=== PATIENT | male | born 1945 | race Caucasian/White ===

== ENCOUNTER 2017-06-03 16:05 | Inpatient (IN) | payer MEDICARE, MEDICAID ==
--- NOTE | 2017-06-03 16:41 | ED Physician Chart ---
ED Chief Complaint/HPI - Patient Information Date Seen:: 06/03/17 Time Seen:: 16:30 Chief Complaint:: shortness of breath History of Present Illness:: Patient complains of shortness of breath for 2 month. He is also being sent here for recent increase in tremors and increased unsteady gait. Allergies:: Allergies Allergy/AdvReac Type Severity Reaction Status Date / Time No Known Allergies Allergy Verified 06/03/17 16:21 Vitals:: Vital Signs - 8 hr 06/03/17 16:21 Temp 98.2 F HR 97 RR 16 BP 174/84 O2 Sat % 94 Historian:: Patient Review:: Transfer documents Reviewed ED Review of Systems - Review of Systems General/Constitutional: No fever, No chills Skin: No skin lesions Head: No headache Eyes: No loss of vision ENT: No earache Neck: No neck pain Cardio Vascular: No chest pain, No palpitations Pulmonary: SOB GI: No nausea, No vomiting, No diarrhea G/U: No dysuria Endocrine: No polyuria, No polydipsia Psychiatric: Prior psych history Hematopoietic: No bruising Allergic/Immuno: No urticaria Neurological: No syncope ED Past Medical History - Past Medical History Past Medical History: Dyslipidemia, PUD/GERD, Seizures, Other (schizophrenia; Parkinson's disease; atherosclerotic heart disease; diverticulitis; hyperlipidemia; glaucoma; cataract; pulmonary valve stenosis; intellectual disability) Family History: None Social History: Care Facility, Other (former smoker) Family Medical History - Family Member Sister Ethnicity: Non- Living Status: Still Living Hx Family Diabetes: Yes (?) ED Physical Exam - Physical Examination General/Constitutional: Well-developed, well-nourished, Alert Head: Atraumatic Eyes: Lids, conjuctiva normal, PERRL Skin: Nl inspection, No rash ENMT: External ears, nose nl Other ENMT comments:: Edentulous Neck: No nuchal rigidity Respiratory: Nl effort/Exclusion, Clear to Auscultation, No Wheeze/Rhonchi/Rales Cardio Vascular: RRR, No murmur, gallop, rubs GI: No tenderness/rebounding/guarding, No organomegaly, No hernia : No CVA tenderness Extremities: Normal digits & nails Neuro/Psych: No focal deficits Misc: Normal back ED Labs/Radiology/EKG Results - Lab Results Results: Laboratory Results - last 24 hr 06/03/17 06/03/17 16:26 16:26 WBC 7.2 RBC 3.87 Hgb 12.1 Hct 34.4 L MCV 88.8 MCH 31.3 H MCHC Differential 35.3 RDW 12.3 Plt Count 276 MPV 6.9 Neutrophils % 69.9 Lymphocytes % 18.9 L Monocytes % 7.8 Eosinophils % 2.4 Basophils % 1.0 Sodium 127 L Potassium 3.8 Chloride 92 L Carbon Dioxide 27.2 Anion Gap 11.6 BUN 14 Creatinine 0.7 Est GFR ( Amer) > 60.0 Est GFR (Non-Af Amer) > 60.0 BUN/Creatinine Ratio 20.0 Glucose 118 H Calcium 8.8 Magnesium 2.2 - Radiology Results Results: Chest x-ray: No infiltrate; elevation of right hemidiaphragm noted - EKG Interpretations Rate & Rhythm: normal sinus rhythm with a rate of 95 [place]: normal ED Septic Shock - . Is Septic Shock (SBP<90, OR Lactate>4 mmol\L) present?: No - <6hrs of presentation: Vital Signs: Vital Signs - 8 hr 06/03/17 16:21 Temp 98.2 F HR 97 RR 16 BP 174/84 O2 Sat % 94 ED Reassessment (Disposition) - Reassessment Reassessment Condition:: Unchanged - Diagnosis Diagnosis:: hyponatremia; COPD - Patient Disposition Spoke to:: Jonh Fenton Admitting Medical Physician:: Jonh Fenton Condition at Disposition:: Stable, Unchanged
[2017-06-03 16:43] LABS: % EOSINOPHILS 2.4 % (0.0-5.0); % LYMPHOCYTES 18.9 % (20.0-50.0); % MONOCYTES 7.8 % (2.0-10.0); % NEUTROPHILS 69.9 % (40.0-80.0); BASOPHILE ABSOLUTE 0.1 Th/cumm (0-0.2); EOSINOPHILE ABSOLUTE 0.2 Th/cmm (0.1-0.4); HEMATOCRIT 34.4 % (41.0-60); HEMOGLOBIN 12.1 gm/dL (12-16); LYMPHOCYTE ABSOLUTE 1.4 Th/cmm (1.5-3.0); MEAN CELL VOLUME 88.8 fl (80-99); MEAN CORPUSCULAR HEMOGLOBIN 31.3 pg (27.0-31.0); MEAN CORPUSCULAR HGB CONC 35.3 pg (28.0-36.0); MEAN PLATELET VOLUME 6.9 fl; MONOCYTE ABSOLUTE 0.6 Th/cmm (0.3-1.0); NEUTROPHILE ABSOLUTE 4.9 Th/cmm (1.8-8.0); PLATELET COUNT 276 Th/cmm (150-400); RED BLOOD COUNT 3.87 Mil/cmm (3.80-5.80); RED CELL DISTRIBUTION WIDTH 12.3 % (11.5-20.0); WHITE BLOOD COUNT 7.2 Th/cmm (4.8-10.8)
[2017-06-03 16:49] LABS: ANION GAP 11.6 (7.0-16.0); BUN - UREA NITROGEN 14 mg/dL (7-25); CALCIUM SERUM 8.8 mg/dL (8.6-10.3); CARBON DIOXIDE 27.2 mEq/L (21.0-31.0); CHLORIDE 92 mEq/L (98-107); CREATININE - SERUM 0.7 mg/dL (0.7-1.3); GFR AFRICAN-AMERICAN > 60.0 ml/min (>90); GFR NON AFRICAN-AMERICAN > 60.0 ml/min; GLUCOSE 118 mg/dL (70-105); MAGNESIUM 2.2 mg/dL (1.9-2.7); POTASSIUM SERUM 3.8 mEq/L (3.5-5.1); SODIUM SERUM 127 mEq/L (136-145)
[2017-06-03 21:57] VITALS: BP 170/88
--- NOTE | 2017-06-04 08:42 | Diagnostic Imaging Report ---
Portable chest x-ray Time: 1629 hours History: Pneumonia Allowing for portable technique the heart size is normal. No focal pulmonary parenchymal processes. No hilar or mediastinal abnormalities. Impression: No acute abnormalities.
[2017-06-04] MEDS ORDERED: Hydrocodone/APAP 5mg/325mg Tab PO PRN (09:28)
[2017-06-04] MEDS ORDERED: Magnesium Hydroxide (MOM) 30 mL UDC PO SCH (09:30)
[2017-06-04] MEDS: D5-0.9%NS 1,000 ML IV SCH ×2 (10:47→23:52)
[2017-06-04] MEDS: Carbidopa/Levodopa 10/100 mg Tab PO SCH ×2 (10:56→16:46)
[2017-06-04] MEDS: Pantoprazole 40 mg EC Tab PO SCH (11:17)
[2017-06-04] MEDS: Albuterol Nebulizer 2.5mg/3mL HHN SCH ×3 (11:49→19:55)
[2017-06-04] MEDS: Ipratropium Neb 0.5 mg/2.5 mL UD IH SCH ×3 (11:49→19:54)
--- NOTE | 2017-06-04 11:54 | Internal Medicine Prog Note ---
Internal Medicine Subjective - Subjective Service Date: 06/04/17 ([id number]) Internal Medicine Objective - Results Result Diagrams: 06/03/17 16:26 06/03/17 16:26 Recent Labs: Laboratory Last Values WBC 7.2 Th/cmm (4.8-10.8) 06/03/17 16:26 RBC 3.87 Mil/cmm (3.80-5.80) 06/03/17 16:26 Hgb 12.1 gm/dL (12-16) 06/03/17 16:26 Hct 34.4 % (41.0-60) L 06/03/17 16:26 MCV 88.8 fl (80-99) 06/03/17 16:26 MCH 31.3 pg (27.0-31.0) H 06/03/17 16:26 MCHC Differential 35.3 pg (28.0-36.0) 06/03/17 16:26 RDW 12.3 % (11.5-20.0) 06/03/17 16:26 Plt Count 276 Th/cmm (150-400) 06/03/17 16:26 MPV 6.9 fl 06/03/17 16:26 Neutrophils % 69.9 % (40.0-80.0) 06/03/17 16:26 Lymphocytes % 18.9 % (20.0-50.0) L 06/03/17 16:26 Monocytes % 7.8 % (2.0-10.0) 06/03/17 16:26 Eosinophils % 2.4 % (0.0-5.0) 06/03/17 16:26 Basophils % 1.0 % (0.0-2.0) 06/03/17 16:26 Sodium 127 mEq/L (136-145) L 06/03/17 16:26 Potassium 3.8 mEq/L (3.5-5.1) 06/03/17 16:26 Chloride 92 mEq/L (98-107) L 06/03/17 16:26 Carbon Dioxide 27.2 mEq/L (21.0-31.0) 06/03/17 16:26 Anion Gap 11.6 (7.0-16.0) 06/03/17 16:26 BUN 14 mg/dL (7-25) 06/03/17 16:26 Creatinine 0.7 mg/dL (0.7-1.3) 06/03/17 16:26 Est GFR ( Amer) > 60.0 ml/min (>90) 06/03/17 16:26 Est GFR (Non-Af Amer) > 60.0 ml/min 06/03/17 16:26 BUN/Creatinine Ratio 20.0 06/03/17 16:26 Glucose 118 mg/dL (70-105) H 06/03/17 16:26 Calcium 8.8 mg/dL (8.6-10.3) 06/03/17 16:26 Magnesium 2.2 mg/dL (1.9-2.7) 06/03/17 16:26 - Physical Exam Vitals and I&O: Vital Signs Temp 97.0 F 06/04/17 08:00 Pulse 71 06/04/17 08:00 Resp 18 06/04/17 08:00 BP 156/85 06/04/17 08:00 Pulse Ox 97 06/04/17 08:00 Intake & Output 06/03/17 06/04/17 06/04/17 18:59 06:59 18:59 Intake Total 100 Balance 100 Weight (lbs) 146 lb 7 oz Intake: Oral 100 Other: # Voids 2 Active Medications: Current Medications Acetaminophen (Tylenol) 650 mg PO Q4H PRN PRN Reason: Pain Or Fever above 101 Stop: 08/03/17 09:27 Acetaminophen/Hydrocodone Bitart ([place] 5mg/325mg) 1 tab PO Q4H PRN PRN Reason: Pain (Severe) Stop: 08/03/17 09:27 Albuterol Sulfate (Albuterol 2.5mg/3ml Neb Ud) 2.5 mg HHN QIDRT [facility] Stop: 08/03/17 10:59 Last Admin: 06/04/17 11:49 Dose: 2.5 mg Carbidopa/Levodopa (Sinemet 10 Mg-100 Mg) 1 tab PO Q8H [facility] Stop: 08/03/17 09:29 Last Admin: 06/04/17 10:56 Dose: 1 tab Dantrolene Sodium (Dantrium) 25 mg PO BID [facility] Stop: 08/03/17 10:44 Last Admin: 06/04/17 11:18 Dose: 25 mg Docusate Sodium (Colace) 250 mg PO DAILY [facility] Stop: 08/03/17 11:29 Last Admin: 06/04/17 11:17 Dose: 250 mg Dextrose/Sodium Chloride (D5-0.9%Ns) 1,000 mls @ 100 mls/hr IV .Q10H [facility] Stop: 08/03/17 09:29 Last Admin: 06/04/17 10:47 Dose: 100 mls/hr Ipratropium [place] (Atrovent Neb 0.5mg/2.5ml) 0.5 mg IH QIDRT [facility] Stop: 08/03/17 10:59 Last Admin: 06/04/17 11:49 Dose: 0.5 mg Latanoprost (Xalatan 0.005% Ophth Soln) 1 drop EACH EYE HS [facility] Stop: 08/03/17 20:59 Magnesium Hydroxide (Milk Of Magnesia) 30 ml PO QMON [facility] Stop: 08/06/19 08:59 Methylprednisolone Sodium Succinate (Solu-Medrol) 80 mg IVP Q8HR [facility] Stop: 08/03/17 12:59 Nitroglycerin (Nitrostat) 0.4 mg SL Q5MIN PRN PRN Reason: Chest Pain Stop: 08/03/17 09:27 Olanzapine (Zyprexa) 2.5 mg PO BID [facility] PRN Reason: Protocol Stop: 08/03/17 11:14 Last Admin: 06/04/17 11:19 Dose: 2.5 mg Ondansetron HCl (Zofran) 4 mg IV Q8H PRN PRN Reason: Nausea / Vomiting Stop: 08/03/17 09:27 Pantoprazole Sodium (Protonix) 40 mg PO QDAC [facility] Stop: 08/03/17 11:29 Last Admin: 06/04/17 11:17 Dose: 40 mg Zolpidem Tartrate (Ambien) 10 mg PO HS PRN PRN Reason: Insomnia Stop: 08/03/17 09:27 Internal Medicine Assmt/Plan - Assessment Assessment: ACUTE COPD EXACERBATION MULTIPLE FALLS DEHYDRATION SEIZURES DYSLIPIDEMIA AHD GLAUCOMA INTELLECTUAL DISABILITY
--- NOTE | 2017-06-04 12:20 | Diagnostic Imaging Report ---
Portable chest x-ray Time: 1016 hours History: COPD Allowing for portable technique the heart size is normal. No focal pulmonary parenchymal processes. No hilar or mediastinal abnormalities. Impression: No acute abnormalities.
[2017-06-04] MEDS: methylPREDNISolone SS 40 mg Vial IVP SCH ×2 (13:24→22:36)
--- NOTE | 2017-06-05 01:08 | History & Physical ---
ADMIT DATE: 06/04/2017 CHIEF COMPLAINT: Shortness of breath. HISTORY OF PRESENT ILLNESS: This is a 71-year-old male who is a resident of [facility] who is brought here to [facility] for 1-day history of shortness of breath. The patient did not have any fevers at the snf; however, the patient was noted to have pursed lip breathing and the patient was unable to sit up straight. PAST MEDICAL HISTORY: Dyslipidemia, PUD, GERD, seizures, schizophrenia, Parkinson's, arthrosclerotic heart disease, diverticulitis, hyperlipidemia, glaucoma, cataracts, pulmonary valve stenosis, intellectual disability. FAMILY HISTORY: Noncontributory. SOCIAL HISTORY: The patient is a former smoker. The patient is a snf resident, requiring 24-hour nursing care. FAMILY HISTORY: Noncontributory. REVIEW OF SYSTEMS: Unable to obtain due to patient's mental status. The patient is confused. PHYSICAL EXAMINATION: GENERAL: The patient is well developed, well nourished, no acute distress. VITAL SIGNS: Temperature 97.2, heart rate 71, blood pressure 156/85, respiration 18, O2 97%. HEENT: Head; normocephalic, atraumatic. NECK: Supple. No mass. LUNGS: Few rhonchi. CARDIOVASCULAR: Regular rate and rhythm. ABDOMEN: Soft, nontender. LABORATORY DATA: WBC 7.2, H and H 12.1, 34.4, platelet of 276. Sodium 127, potassium 3.8, chloride 92, BUN 14, creatinine 0.7. DIAGNOSTICS: The patient had a chest x-ray done and the impression is no acute abnormalities. ASSESSMENT: Multiple falls, hyponatremia, chronic obstructive pulmonary disease, acute chronic obstructive pulmonary disease exacerbation, dyslipidemia, gastroesophageal reflux disease, seizures, schizophrenia, Parkinson's, ____, diverticulitis, hyperlipidemia, glaucoma, cataracts, pulmonary valve stenosis, intellectual disability. PLAN: The patient to be admitted to the med/surg unit. We will get a Neurology consultation. PT evaluation as well. Keep patient on IV fluids for hydration as well as empiric IV antibiotics. We will get followup labs tomorrow morning. We will continue to follow this patient. JOB# [id number]
[2017-06-05] MEDS: methylPREDNISolone SS 40 mg Vial IVP SCH ×3 (04:18→21:12)
[2017-06-05] MEDS: Carbidopa/Levodopa 10/100 mg Tab PO SCH ×3 (04:18→17:25)
[2017-06-05 06:14] LABS: HEMATOCRIT 35.4 % (41.0-60); HEMOGLOBIN 12.5 gm/dL (12-16); LYMPHOCYTE ABSOLUTE 0.6 Th/cmm (1.5-3.0); MEAN CELL VOLUME 87.9 fl (80-99); MEAN CORPUSCULAR HEMOGLOBIN 30.9 pg (27.0-31.0); MEAN CORPUSCULAR HGB CONC 35.2 pg (28.0-36.0); MEAN PLATELET VOLUME 7.5 fl; MONOCYTE ABSOLUTE 0.1 Th/cmm (0.3-1.0); NEUTROPHILE ABSOLUTE 8.6 Th/cmm (1.8-8.0); PLATELET COUNT 297 Th/cmm (150-400); RED BLOOD COUNT 4.03 Mil/cmm (3.80-5.80); RED CELL DISTRIBUTION WIDTH 12.3 % (11.5-20.0)
[2017-06-05 06:20] LABS: ANION GAP 13.8 (7.0-16.0); BUN - UREA NITROGEN 14 mg/dL (7-25); CALCIUM SERUM 8.7 mg/dL (8.6-10.3); CARBON DIOXIDE 24.4 mEq/L (21.0-31.0); CHLORIDE 95 mEq/L (98-107); CREATININE - SERUM 0.5 mg/dL (0.7-1.3); GFR AFRICAN-AMERICAN > 60.0 ml/min (>90); GFR NON AFRICAN-AMERICAN > 60.0 ml/min; GLUCOSE 151 mg/dL (70-105); POTASSIUM SERUM 4.2 mEq/L (3.5-5.1); SODIUM SERUM 129 mEq/L (136-145)
[2017-06-05 06:22] LABS: WHITE BLOOD COUNT 9.3 Th/cmm (4.8-10.8)
[2017-06-05] MEDS: Pantoprazole 40 mg EC Tab PO SCH (06:40)
[2017-06-05] MEDS: Albuterol Nebulizer 2.5mg/3mL HHN SCH ×4 (08:05→19:24)
[2017-06-05] MEDS: Ipratropium Neb 0.5 mg/2.5 mL UD IH SCH ×4 (08:05→19:24)
[2017-06-05] MEDS: D5-0.9%NS 1,000 ML IV SCH ×2 (09:39→21:32)
--- NOTE | 2017-06-05 14:52 | Internal Medicine Prog Note ---
Internal Medicine Subjective - Subjective Patient seen and examined:: with staff, chart reviewed Patient is:: awake, verbal, interactive, in bed, confused, congested Per staff patient has:: no adverse event, poor appetite, unstable gait, tolerating meds, refusing care Internal Medicine Objective - Results Result Diagrams: 06/05/17 05:20 06/05/17 05:20 Recent Labs: Laboratory Last Values WBC 9.3 Th/cmm (4.8-10.8) D 06/05/17 05:20 RBC 4.03 Mil/cmm (3.80-5.80) 06/05/17 05:20 Hgb 12.5 gm/dL (12-16) 06/05/17 05:20 Hct 35.4 % (41.0-60) L 06/05/17 05:20 MCV 87.9 fl (80-99) 06/05/17 05:20 MCH 30.9 pg (27.0-31.0) 06/05/17 05:20 MCHC Differential 35.2 pg (28.0-36.0) 06/05/17 05:20 RDW 12.3 % (11.5-20.0) 06/05/17 05:20 Plt Count 297 Th/cmm (150-400) 06/05/17 05:20 MPV 7.5 fl 06/05/17 05:20 Neutrophils % 69.9 % (40.0-80.0) 06/03/17 16:26 Lymphocytes % 18.9 % (20.0-50.0) L 06/03/17 16:26 Monocytes % 7.8 % (2.0-10.0) 06/03/17 16:26 Eosinophils % 2.4 % (0.0-5.0) 06/03/17 16:26 Basophils % 1.0 % (0.0-2.0) 06/03/17 16:26 Sodium 129 mEq/L (136-145) L 06/05/17 05:20 Potassium 4.2 mEq/L (3.5-5.1) 06/05/17 05:20 Chloride 95 mEq/L (98-107) L 06/05/17 05:20 Carbon Dioxide 24.4 mEq/L (21.0-31.0) 06/05/17 05:20 Anion Gap 13.8 (7.0-16.0) 06/05/17 05:20 BUN 14 mg/dL (7-25) 06/05/17 05:20 Creatinine 0.5 mg/dL (0.7-1.3) L 06/05/17 05:20 Est GFR ( Amer) > 60.0 ml/min (>90) 06/05/17 05:20 Est GFR (Non-Af Amer) > 60.0 ml/min 06/05/17 05:20 BUN/Creatinine Ratio 28.0 06/05/17 05:20 Glucose 151 mg/dL (70-105) H 06/05/17 05:20 Calcium 8.7 mg/dL (8.6-10.3) 06/05/17 05:20 Magnesium 2.2 mg/dL (1.9-2.7) 06/03/17 16:26 - Physical Exam Vitals and I&O: Vital Signs Temp 97.6 F 06/05/17 12:00 Pulse 102 06/05/17 12:00 Resp 20 06/05/17 12:00 BP 135/75 06/05/17 12:00 Pulse Ox 94 06/05/17 12:00 Intake & Output 06/04/17 06/05/17 06/05/17 18:59 06:59 18:59 Intake Total 1843.333 256.667 978.333 Balance 1843.333 256.667 978.333 Weight (lbs) 66.224 kg Intake: Intake, IV Amount 743.333 256.667 978.333 D5-0.9%Ns 1,000 ml @ 100 743.333 256.667 978.333 mls/hr IV .Q10H [facility] Rx#: [id number] Oral 1100 Other: # Voids 3 # Bowel Movements 2 Active Medications: Current Medications Acetaminophen (Tylenol) 650 mg PO Q4H PRN PRN Reason: Pain Or Fever above 101 Stop: 08/03/17 09:27 Acetaminophen/Hydrocodone Bitart ([place] 5mg/325mg) 1 tab PO Q4H PRN PRN Reason: Pain (Severe) Stop: 08/03/17 09:27 Albuterol Sulfate (Albuterol 2.5mg/3ml Neb Ud) 2.5 mg HHN QIDRT [facility] Stop: 08/03/17 10:59 Last Admin: 06/05/17 11:30 Dose: 2.5 mg Carbidopa/Levodopa (Sinemet 10 Mg-100 Mg) 1 tab PO Q8H [facility] Stop: 08/03/17 09:29 Last Admin: 06/05/17 09:15 Dose: 1 tab Dantrolene Sodium (Dantrium) 25 mg PO BID [facility] Stop: 08/03/17 10:44 Last Admin: 06/05/17 09:14 Dose: 25 mg Docusate Sodium (Colace) 250 mg PO DAILY [facility] Stop: 08/03/17 11:29 Last Admin: 06/05/17 09:14 Dose: 250 mg Dextrose/Sodium Chloride (D5-0.9%Ns) 1,000 mls @ 100 mls/hr IV .Q10H [facility] Stop: 08/03/17 09:29 Last Admin: 06/05/17 09:39 Dose: 100 mls/hr Ipratropium [place] (Atrovent Neb 0.5mg/2.5ml) 0.5 mg IH QIDRT [facility] Stop: 08/03/17 10:59 Last Admin: 06/05/17 11:30 Dose: 0.5 mg Latanoprost (Xalatan 0.005% Ophth Soln) 1 drop EACH EYE HS [facility] Stop: 08/03/17 20:59 Last Admin: 06/04/17 22:35 Dose: 1 drop Magnesium Hydroxide (Milk Of Magnesia) 30 ml PO QMON [facility] Stop: 08/06/19 08:59 Methylprednisolone Sodium Succinate (Solu-Medrol) 80 mg IVP Q8HR [facility] Stop: 08/03/17 12:59 Last Admin: 06/05/17 12:17 Dose: 80 mg Nitroglycerin (Nitrostat) 0.4 mg SL Q5MIN PRN PRN Reason: Chest Pain Stop: 08/03/17 09:27 Olanzapine (Zyprexa) 2.5 mg PO BID [facility] PRN Reason: Protocol Stop: 08/03/17 11:14 Last Admin: 06/05/17 09:14 Dose: 2.5 mg Ondansetron HCl (Zofran) 4 mg IV Q8H PRN PRN Reason: Nausea / Vomiting Stop: 08/03/17 09:27 Pantoprazole Sodium (Protonix) 40 mg PO QDAC [facility] Stop: 08/03/17 11:29 Last Admin: 06/05/17 06:40 Dose: 40 mg Zolpidem Tartrate (Ambien) 10 mg PO HS PRN PRN Reason: Insomnia Stop: 08/03/17 09:27 General: congested, demented HEENT: NC/AT, PERRLA Neck: Supple, No thyromegaly Lungs: congested, rales Cardiovascular: RRR, Normal S1, Normal S2 Abdomen: soft, non-tender, globular Extremities: excoriation, deformity Neurological: no change, disorganized, unsteady, unable to follow command Internal Medicine Assmt/Plan - Assessment Assessment: ACUTE COPD EXACERBATION MULTIPLE FALLS DEHYDRATION SEIZURES DYSLIPIDEMIA AHD GLAUCOMA INTELLECTUAL DISABILITY - Plan Plan: cont on ivf will correct lytes referaal to neuro pending cpm pedro rn
--- NOTE | 2017-06-05 21:06 | Consultation ---
DATE OF CONSULTATION: 06/05/2017 NEUROLOGY CONSULTATION HISTORY OF PRESENT ILLNESS: A 71-year-old male admitted with shortness of breath, possible pneumonia, exacerbation of COPD. Neurological consultation because of the patient's tremor. The patient diagnosed of Parkinson's. The patient at the moment is sitting in chair. Not much tremor, on and off, he says, kind of combination of both resting and action tremor. PAST MEDICAL HISTORY: 1. Seizures. 2. Parkinson's. 3. Hyperlipidemia. 4. Developmental delay. 5. Dyslipidemia. 6. GERD. 7. Coronary artery disease. 8. Pulmonary valve stenosis. 9. Cataracts. SOCIAL HISTORY: He used to smoke. In a care home. Does not drink. REVIEW OF SYSTEMS: On direct questioning from the patient, no headache. The patient has some tremor on and off. No much chest pain. Shortness of breath somewhat better. Able to swallow. The patient's gait unsteady. MEDICATIONS: Sinemet 10/100 every 8 hours, Dantrium 25 mg b.i.d., methylprednisolone, Zyprexa 2.5 mg b.i.d., Protonix, and Ambien. PHYSICAL EXAMINATION: VITAL SIGNS: Temperature 98.4, blood pressure 130/68, and pulse is 80. NECK: Supple, no bruits. HEART: Sounds S1, S2. LUNGS: Clear. NEUROLOGIC: The patient is sitting up in bed. Speech dysarthric. Gives me his name, his age. He does not know the day, but he knew the month. Able to name simple objects. CRANIAL: Pupils react to light. Full eye movement. No nystagmus. No facial weakness. MOTOR: He will lift both arms up, very mild resting tremor. There is some increased tone with cogwheeling rigidity, but not much. Lives both arms up. Will lift both legs up. Reflex about 1+ upper extremities. Knees are about 2+ to 3, ankles -1. Withdrawal of toes. ASSESSMENT: 1. Tremor, probably combination of Parkinson's, probably secondary to medication or otherwise. At this time, continue present treatment. 2. History of seizures, though no definite seizures here. I would not change any medications for the time being. The patient should follow with Neurology as outpatient. 3. The patient with ataxia. Question of possible myelopathy, again should follow up with outpatient Neurology. 4. Developmental delay. 5. Dyslipidemia. 6. Chronic obstructive pulmonary disease exacerbation. JOB# [id number]
[2017-06-06] MEDS: Carbidopa/Levodopa 10/100 mg Tab PO SCH ×3 (04:45→17:57)
[2017-06-06] MEDS: methylPREDNISolone SS 40 mg Vial IVP SCH ×2 (04:45→13:52)
[2017-06-06] MEDS: D5-0.9%NS 1,000 ML IV SCH (04:48)
[2017-06-06 06:18] LABS: ANION GAP 12.7 (7.0-16.0); BUN - UREA NITROGEN 16 mg/dL (7-25); CALCIUM SERUM 8.4 mg/dL (8.6-10.3); CARBON DIOXIDE 25.5 mEq/L (21.0-31.0); CHLORIDE 97 mEq/L (98-107); CREATININE - SERUM 0.6 mg/dL (0.7-1.3); GFR AFRICAN-AMERICAN > 60.0 ml/min (>90); GFR NON AFRICAN-AMERICAN > 60.0 ml/min; GLUCOSE 130 mg/dL (70-105); POTASSIUM SERUM 4.2 mEq/L (3.5-5.1); SODIUM SERUM 131 mEq/L (136-145)
[2017-06-06 06:22] LABS: HEMATOCRIT 32.4 % (41.0-60); LYMPHOCYTE ABSOLUTE 0.7 Th/cmm (1.5-3.0); MANUAL DIFF REQUIRED? YES; MEAN CELL VOLUME 88.5 fl (80-99); MEAN CORPUSCULAR HGB CONC 33.9 pg (28.0-36.0); MEAN PLATELET VOLUME 7.6 fl; MONOCYTE ABSOLUTE 0.2 Th/cmm (0.3-1.0); PLATELET COUNT 278 Th/cmm (150-400); RED BLOOD COUNT 3.66 Mil/cmm (3.80-5.80); RED CELL DISTRIBUTION WIDTH 12.3 % (11.5-20.0)
[2017-06-06 06:41] LABS: WHITE BLOOD COUNT 12.9 Th/cmm (4.8-10.8)
[2017-06-06 06:59] LABS: NEUTROPHILS 93 % (40-80); TOTAL CELLS COUNTED 100
[2017-06-06 07:00] LABS: BAND NEUTROPHILE 3 % (0-10); LYMPHOCYTE 4 % (20-50)
[2017-06-06] MEDS: Albuterol Nebulizer 2.5mg/3mL HHN SCH ×4 (07:39→19:16)
[2017-06-06] MEDS: Ipratropium Neb 0.5 mg/2.5 mL UD IH SCH ×4 (07:39→19:16)
[2017-06-06] MEDS: Pantoprazole 40 mg EC Tab PO SCH (08:12)
[2017-06-06] MEDS ORDERED: predniSONE 5 mg/5 mL UDC PO SCH (17:00)
--- NOTE | 2017-06-06 18:42 | Discharge Summary ---
DATE OF DISCHARGE: 06/06/2017 CHIEF COMPLAINT: The patient has shortness of breath and uncontrolled tremors. FINAL DIAGNOSES: Acute chronic obstructive pulmonary disease exacerbation, multiple falls, leukocytosis, electrolyte abnormalities, high cholesterol, GERD, Parkinson's, seizure, schizoaffective disorder, glaucoma, and intellectual disability. HISTORY OF PRESENT ILLNESS: This is a 71-year-old male with history of Parkinson's with worsening shortness of breath and worsening tremors. The patient admitted for further management. PHYSICAL EXAMINATION: VITAL SIGNS: Blood pressure 120/68, respirations 20, pulse 70, temperature 98. GENERAL: Elderly male who appears his stated age. NECK: Supple. No mass. LUNGS: Equal breath sounds, few rhonchi, wheezing. HEART: Regular rate and rhythm with systolic ejection murmur. ABDOMEN: Soft, globular. EXTREMITIES: Positive excoriations. NEUROLOGIC: Limited. HOSPITAL COURSE: The patient was admitted to medical floor. Continue oxygen and treatment. The patient was ____ Dr. Thomas for Neurology. His medications were adjusted. The patient was given oxygen and bronchodilator treatments and IV steroids. The patient's condition did improve. No episode of seizure or falls during this admission. The case was discussed with the [id number]. DISCHARGE INSTRUCTIONS: The patient to continue current care. Follow with his primary care doctor as well as neurologist as per Dr. Thomas's recommendations. JOB# [id number]
[2017-06-09 02:17] LABS: FOLIC ACID 9.5 ng/mL (>3.0)
[2019-06-07] MEDS ORDERED: Magnesium Hydroxide (MOM) 30 mL UDC PO SCH (09:00)
== END 2017-06-06 18:55 | DRG 191 ==
LOC: ER 16:05 → MSI 19:17
PROVIDERS: ADMIT Internal Medicine; ATTEND Internal Medicine
DX: J44.1 Chronic obstructive pulmonary disease with (acute) exacerbation (principal); K57.32 Diverticulitis of large intestine without perforation or abscess without bleeding; G20 Parkinson's disease; R56.9 Unspecified convulsions; F25.9 Schizoaffective disorder, unspecified; E87.1 Hypo-osmolality and hyponatremia; E78.5 Hyperlipidemia, unspecified; R27.0 Ataxia, unspecified; K21.9 Gastro-esophageal reflux disease without esophagitis; I25.10 Atherosclerotic heart disease of native coronary artery without angina pectoris; H40.9 Unspecified glaucoma; F03.90 Unspecified dementia, unspecified severity, without behavioral disturbance, psychotic disturbance, mood disturbance, and anxiety; H26.9 Unspecified cataract; I37.8 Other nonrheumatic pulmonary valve disorders; F79 Unspecified intellectual disabilities; E86.0 Dehydration; W18.30XA Fall on same level, unspecified, initial encounter; Y93.89 Activity, other specified; Y92.89 Other specified places as the place of occurrence of the external cause; Y99.8 Other external cause status; Z87.891 Personal history of nicotine dependence
CPT/HCPCS: 36415-UA; 71010-TC; 80048-TC; 82140-TC; 82607-90; 82746-90; 83735-TC; 85007-TC; 85025-TC; 85027-TC; 90779; 93005; 94640; 94760; 97530; J2920; J7030; J7042; J7613; Z7610